=== PATIENT | female | born 1935 | race Caucasian/White ===

== ENCOUNTER 2020-04-15 11:25 | Observation (INO) | payer MEDICARE, OTHER ==
[2020-04-15 15:47] LABS: Appearance CLEAR (CLEAR); Bacteria RARE /HPF (NEGATIVE); Bilirubin NEGATIVE (NEGATIVE); Blood NEGATIVE Ery/ul (0-5); Glucose NEGATIVE (NEGATIVE); Ketones NEGATIVE (NEGATIVE); Leukocyte Esterase NEGATIVE (NEGATIVE); Nitrite NEGATIVE (NEGATIVE); Protein,Urine Dip NEGATIVE (Negative); Specific Gravity 1.004 (1.005-1.025); Urobilinogen NEGATIVE mg/dL (0-1); WBC 0-2 /HPF (0-5)
[2020-04-15 15:51] LABS: Absolute Neutrophil Ct (ANC) 5.61 (1.4-6.9); BASOPHIL % 0.3 % (0.0-0.4); Eosinophil % 2.9 % (0.00-5.0); Eosinophil (Absolute #) 0.22 (0-0.5); Hematocrit 43.9 % (35-47); Hemoglobin 14.3 gm/dl (12.0-16.0); Lymphocyte (Absolute #) 1.01 (1.0-4.6); Lymphocytes % 13.4 % (24.0-44.0); Mean Cell Volume 96.1 fl (78-100); Mean Corpuscular Hemoglobin 31.3 pg (26-32); Mean Corpuscular Hgb Concent. 32.6 g/dl (32-36); Mean Platelet Volume 9.6 fl (7.5-11.0); Monocyte (Absolute #) 0.68 (0.0-1.3); Neutrophil % 74.4 % (36.0-66.0); Platelet Count 216 K/mm3 (150-450); Red Blood Count 4.57 M/mm3 (4.1-5.4); Red Cell Distribution Width 13.7 % (11.5-14.0); White Blood Count 7.5 K/mm3 (4.0-10.5)
[2020-04-15 15:52] LABS: Basophil (Absolute #) 0.02 (0-0.4)
[2020-04-15 15:53] LABS: ALBUMIN 4.4 g/dL (3.5-5.0); ALKALINE PHOSPHATASE 181 U/L (38-126); BLOOD UREA NITROGEN 16 mg/dL (7-17); CHLORIDE 106 mmol/L (98-107); Calcium 9.8 mg/dL (8.4-10.2); Carbon Dioxide 29 mmol/L (22-30); Creatinine 1 0.72 mg/dL (0.52-1.04); Glucose 182 mg/dL (74-106); MAGNESIUM 2.2 mg/dL (1.6-2.3); Potassium 4.3 mmol/L (3.5-5.1); SGOT/AST 29 U/L (14-36); SGPT/ALT 17 U/L (0-35); SODIUM 141 mmol/L (137-145)
[2020-04-15 15:54] LABS: ANION GAP 10.3 MEQ/L (5-15); NT PRO BNP 128 pg/mL (0-1800); TROPONIN < 0.012 ng/mL (0.000-0.034)
--- NOTE | 2020-04-15 17:15 | XRAY ---
Indication: Intermittent chest pain 1 week. Comparison: None Portable chest demonstrates chronic interstitial lung markings without focal infiltrate, consolidation, or large effusion. Mild right hemidiaphragm elevation. Heart is not enlarged. Bony thorax intact with mild osteopenia and degenerative changes. Impression: Nonacute chest with chronic features.
[2020-04-15] MEDS ORDERED: TYLENOL 325 MG PO PRN (17:19)
[2020-04-15] MEDS ORDERED: Sodium Chloride 0.9% 10 ML FLUSH Syringe IV PRN (17:30)
[2020-04-15] MEDS: Protonix 40MG Tablet PO SCH (18:08)
--- NOTE | 2020-04-15 20:46 | PCM.HP ---
History of Present Illness - Chief Complaint Chief Complaint: ACS, CHEST PAIN History of Present Illness: is a 84 year old female pt admitted through ER with chest pain to rule out [place]. She was cleaning up breakfast at 8-9am this morning and started having achy pain in the mid chest radiating to the R shoulder, 06/09. Denies palpitations or nause, c/o diaphoresis. EKG without acute changes in ER. Troponin neg x1. Currently she has no pain. - Review of Systems Cardiac: Chest Pain Musculoskeletal: Arthralgias (shoulder pain) Skin: Other (diaphoresis) All Other Systems: Reviewed and Negative Medications & Allergies Home Medications: Home Medication List Amlodipine Besylate 10 mg PO DAILY 04/15/20 [History Confirmed 04/15/20] Glimepiride 1 mg PO DAILY 04/15/20 [History Confirmed 04/15/20] atenoloL [Atenolol] 50 mg PO DAILY 04/15/20 [History Confirmed 04/15/20] Allergies/Adverse Reactions: Allergies Allergy/AdvReac Type Severity Reaction Status Date / Time No Known Drug Allergies Allergy Unverified 04/15/20 17:26 - Past Medical History Past Medical History: Yes Neurological History: No Pertinent History ENT History: No Pertinent History Cardiac History: Hypertension Respiratory History: No Pertinent History Endocrine Medical History: Diabetes Type II Musculoskelatal History: No Pertinent History GI Medical History: No Pertinent History History: No Pertinent History Pyscho-Social History: No Pertinent History Reproductive Disorders: No Pertinent History - Female History Are you now?: No (HYST) - Past Surgical History Past Surgical History: Yes Neuro Surgical History: No Pertinent History Cardiac History: No Pertinent History Respiratory Surgery: No Pertinent History GI Surgical History: No Pertinent History Genitourinary Surgical Hx: No Pertinent History Musculskeletal Surgical Hx: No Pertinent History Female Surgical History: Hysterectomy Other Surgical History: R LEG MELANOMA REMOVED, 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, SALIVA GLAND REMOVED D/T CA - Social History Smoking Status: Never smoker Alcohol: None Drug Use: none - Physical Exam Vital Signs: Vital Signs - 24 hr Temp Pulse Resp BP Pulse Ox 04/15/20 17:34 97.8 F 67 16 133/60 97 General Appearance: no apparent distress, alert Neurologic Exam: oriented x 3, cooperative Eye Exam: eyes nml inspection Ears, Nose, Throat Exam: moist mucous membranes Neck Exam: normal inspection, non-tender, No lymphadenopathy Respiratory Exam: normal breath sounds, crackles/rales (faint bibasilar), No rhonchi, No wheezing Cardiovascular Exam: regular rate/rhythm, normal heart sounds, No murmur Gastrointestinal/Abdomen Exam: soft, normal bowel sounds, No tenderness, No distention, No mass, No guarding, No rebound Back Exam: normal inspection, No rash Extremity Exam: normal inspection, No pedal edema, No swelling Results - Labs Lab/Micro Results: Lab Results-Last 24 Hours 04/15/20 04/15/20 04/15/20 Range/Units 12:00 12:00 12:00 WBC 7.5 (4.0-10.5) K/mm3 RBC 4.57 (4.1-5.4) M/mm3 Hgb 14.3 (12.0-16.0) gm/dl Hct 43.9 (35-47) % MCV 96.1 (78-100) fl MCH 31.3 (26-32) pg MCHC 32.6 (32-36) g/dl RDW 13.7 (11.5-14.0) % Plt Count 216 (150-450) K/mm3 MPV 9.6 (7.5-11.0) fl Gran % 74.4 H (36.0-66.0) % Eos # (Auto) 0.22 (0-0.5) Absolute Lymphs (auto) 1.01 (1.0-4.6) Absolute Monos (auto) 0.68 (0.0-1.3) Lymphocytes % 13.4 L (24.0-44.0) % Monocytes % 9.0 (0.0-12.0) % Eosinophils % 2.9 (0.00-5.0) % Basophils % 0.3 (0.0-0.4) % Absolute Granulocytes 5.61 (1.4-6.9) Basophils # 0.02 (0-0.4) Sodium 141 (137-145) mmol/L Potassium 4.3 (3.5-5.1) mmol/L Chloride 106 (98-107) mmol/L Carbon Dioxide 29 (22-30) mmol/L Anion Gap 10.3 (5-15) MEQ/L BUN 16 (7-17) mg/dL Creatinine 0.72 (0.52-1.04) mg/dL Estimated GFR > 60.0 ML/MIN Glucose 182 H (74-106) mg/dL Calcium 9.8 (8.4-10.2) mg/dL Magnesium 2.2 (1.6-2.3) mg/dL Total Bilirubin 0.60 (0.2-1.3) mg/dL AST 29 (14-36) U/L ALT 17 (0-35) U/L Alkaline Phosphatase 181 H (38-126) U/L Troponin I < 0.012 (0.000-0.034) ng/mL NT-Pro-B Natriuret Pep 128 (0-1800) pg/mL Serum Total Protein 8.0 (6.3-8.2) g/dL Albumin 4.4 (3.5-5.0) g/dL Urine Color STRAW (YELLOW) Urine Appearance CLEAR (CLEAR) Urine pH 7.0 (5-6) Ur Specific [place] 1.004 (1.005-1.025) Urine Protein NEGATIVE (Negative) Urine Ketones NEGATIVE (NEGATIVE) Urine Blood NEGATIVE (0-5) Clay/ul Urine Nitrite NEGATIVE (NEGATIVE) Urine Bilirubin NEGATIVE (NEGATIVE) Urine Urobilinogen NEGATIVE (0-1) mg/dL Ur Leukocyte Esterase NEGATIVE (NEGATIVE) Urine WBC (Auto) 0-2 (0-5) /HPF Urine RBC (Auto) NONE (0-2) /HPF U Epithel Cells (Auto) NONE (FEW) /HPF Urine Bacteria (Auto) RARE (NEGATIVE) /HPF Urine Culture Reflexed NO (NO) Urine Glucose NEGATIVE (NEGATIVE) mg/dL 04/15/20 Range/Units 17:45 WBC (4.0-10.5) K/mm3 RBC (4.1-5.4) M/mm3 Hgb (12.0-16.0) gm/dl Hct (35-47) % MCV (78-100) fl MCH (26-32) pg MCHC (32-36) g/dl RDW (11.5-14.0) % Plt Count (150-450) K/mm3 MPV (7.5-11.0) fl Gran % (36.0-66.0) % Eos # (Auto) (0-0.5) Absolute Lymphs (auto) (1.0-4.6) Absolute Monos (auto) (0.0-1.3) Lymphocytes % (24.0-44.0) % Monocytes % (0.0-12.0) % Eosinophils % (0.00-5.0) % Basophils % (0.0-0.4) % Absolute Granulocytes (1.4-6.9) Basophils # (0-0.4) Sodium (137-145) mmol/L Potassium (3.5-5.1) mmol/L Chloride (98-107) mmol/L Carbon Dioxide (22-30) mmol/L Anion Gap (5-15) MEQ/L BUN (7-17) mg/dL Creatinine (0.52-1.04) mg/dL Estimated GFR ML/MIN Glucose (74-106) mg/dL Calcium (8.4-10.2) mg/dL Magnesium (1.6-2.3) mg/dL Total Bilirubin (0.2-1.3) mg/dL AST (14-36) U/L ALT (0-35) U/L Alkaline Phosphatase (38-126) U/L Troponin I < 0.012 (0.000-0.034) ng/mL NT-Pro-B Natriuret Pep (0-1800) pg/mL Serum Total Protein (6.3-8.2) g/dL Albumin (3.5-5.0) g/dL Urine Color (YELLOW) Urine Appearance (CLEAR) Urine pH (5-6) Ur Specific [place] (1.005-1.025) Urine Protein (Negative) Urine Ketones (NEGATIVE) Urine Blood (0-5) Clay/ul Urine Nitrite (NEGATIVE) Urine Bilirubin (NEGATIVE) Urine Urobilinogen (0-1) mg/dL Ur Leukocyte Esterase (NEGATIVE) Urine WBC (Auto) (0-5) /HPF Urine RBC (Auto) (0-2) /HPF U Epithel Cells (Auto) (FEW) /HPF Urine Bacteria (Auto) (NEGATIVE) /HPF Urine Culture Reflexed (NO) Urine Glucose (NEGATIVE) mg/dL - Radiology Impressions Radiology Exams & Impressions: Radiology Procedures Category Date Time Status CHEST 1 VIEW (PORTABLE) Routine Exams 04/15/20 16:15 Completed Assessment/Plan (1) Chest pain Current Visit: Yes Status: Acute Qualifiers: Chest pain type: unspecified Qualified Code(s): R07.9 - Chest pain, unspecified Assessment & Plan: here to r/o [place] Code(s): R07.9 - CHEST PAIN, UNSPECIFIED
[2020-04-15] MEDS ORDERED: Sodium Chloride 0.9% 10 ML FLUSH Syringe IV SCH (22:00)
[2020-04-16 03:52] LABS: Hematocrit 39.8 % (35-47); Mean Cell Volume 97.1 fl (78-100); Mean Corpuscular Hemoglobin 31.7 pg (26-32); Mean Corpuscular Hgb Concent. 32.7 g/dl (32-36); Mean Platelet Volume 9.9 fl (7.5-11.0); Platelet Count 210 K/mm3 (150-450); Red Cell Distribution Width 13.5 % (11.5-14.0); White Blood Count 7.3 K/mm3 (4.0-10.5)
[2020-04-16 03:57] LABS: ALBUMIN 3.4 g/dL (3.5-5.0); ALKALINE PHOSPHATASE 150 U/L (38-126); ANION GAP 8.8 MEQ/L (5-15); BLOOD UREA NITROGEN 15 mg/dL (7-17); CHLORIDE 107 mmol/L (98-107); Calcium 8.9 mg/dL (8.4-10.2); Carbon Dioxide 28 mmol/L (22-30); Creatinine 1 0.65 mg/dL (0.52-1.04); Glucose 135 mg/dL (74-106); Potassium 4.5 mmol/L (3.5-5.1); SGOT/AST 22 U/L (14-36); SGPT/ALT 14 U/L (0-35); SODIUM 140 mmol/L (137-145); Total Protein 6.4 g/dL (6.3-8.2)
[2020-04-16 07:35] VITALS: BP 124/57; PULSE 73; O2SAT 95
[2020-04-16] MEDS: Protonix 40MG Tablet PO SCH (09:27)
[2020-04-16] MEDS ORDERED: Ecotrin 325 MG PO SCH (10:00)
--- NOTE | 2020-04-16 11:34 | PCM.DS ---
Discharge Summary Date of Admission: 04/15/20 16:46 Admitting Physician: GOKUL WEST Primary Care Provider: NO FAMILY DOCTOR Allergies Allergies No Known Drug Allergies Allergy (Unverified 04/15/20 17:26) Hospital Summary - Hospital Course Hospital Course: Pt is 84 yo female with DM II admitted for chest pain to rule out [place]. Her troponins have been neg x 5. Her labs are completely normal this morning with the exception of a glucose of 135. She is feeling really good and would like to discharge to home. She will have an outpatient lexiscan cardiolyte. - Vitals & Intake/Output Vital Signs: Vital Signs Temperature 97.8 F 04/16/20 07:34 Pulse Rate 73 04/16/20 07:34 Respiratory Rate 16 04/16/20 07:34 Blood Pressure 124/57 04/16/20 07:34 O2 Sat by Pulse Oximetry 95 04/16/20 07:34 Intake & Output: Intake & Output 04/13/20 04/14/20 04/15/20 04/16/20 11:59 11:59 11:59 11:59 Intake Total 1380 Balance 1380 Weight 60.3 kg - Lab Result Diagrams: 04/16/20 02:40 04/16/20 02:40 Lab Results-Last 24 Hrs: Lab Results-Last 24 Hours 04/15/20 04/15/20 04/15/20 Range/Units 12:00 12:00 12:00 WBC 7.5 (4.0-10.5) K/mm3 RBC 4.57 (4.1-5.4) M/mm3 Hgb 14.3 (12.0-16.0) gm/dl Hct 43.9 (35-47) % MCV 96.1 (78-100) fl MCH 31.3 (26-32) pg MCHC 32.6 (32-36) g/dl RDW 13.7 (11.5-14.0) % Plt Count 216 (150-450) K/mm3 MPV 9.6 (7.5-11.0) fl Gran % 74.4 H (36.0-66.0) % Eos # (Auto) 0.22 (0-0.5) Absolute Lymphs (auto) 1.01 (1.0-4.6) Absolute Monos (auto) 0.68 (0.0-1.3) Lymphocytes % 13.4 L (24.0-44.0) % Monocytes % 9.0 (0.0-12.0) % Eosinophils % 2.9 (0.00-5.0) % Basophils % 0.3 (0.0-0.4) % Absolute Granulocytes 5.61 (1.4-6.9) Basophils # 0.02 (0-0.4) Sodium 141 (137-145) mmol/L Potassium 4.3 (3.5-5.1) mmol/L Chloride 106 (98-107) mmol/L Carbon Dioxide 29 (22-30) mmol/L Anion Gap 10.3 (5-15) MEQ/L BUN 16 (7-17) mg/dL Creatinine 0.72 (0.52-1.04) mg/dL Estimated GFR > 60.0 ML/MIN Glucose 182 H (74-106) mg/dL Calcium 9.8 (8.4-10.2) mg/dL Magnesium 2.2 (1.6-2.3) mg/dL Total Bilirubin 0.60 (0.2-1.3) mg/dL AST 29 (14-36) U/L ALT 17 (0-35) U/L Alkaline Phosphatase 181 H (38-126) U/L Troponin I < 0.012 (0.000-0.034) ng/mL NT-Pro-B Natriuret Pep 128 (0-1800) pg/mL Serum Total Protein 8.0 (6.3-8.2) g/dL Albumin 4.4 (3.5-5.0) g/dL Urine Color STRAW (YELLOW) Urine Appearance CLEAR (CLEAR) Urine pH 7.0 (5-6) Ur Specific [place] 1.004 (1.005-1.025) Urine Protein NEGATIVE (Negative) Urine Ketones NEGATIVE (NEGATIVE) Urine Blood NEGATIVE (0-5) Clay/ul Urine Nitrite NEGATIVE (NEGATIVE) Urine Bilirubin NEGATIVE (NEGATIVE) Urine Urobilinogen NEGATIVE (0-1) mg/dL Ur Leukocyte Esterase NEGATIVE (NEGATIVE) Urine WBC (Auto) 0-2 (0-5) /HPF Urine RBC (Auto) NONE (0-2) /HPF U Epithel Cells (Auto) NONE (FEW) /HPF Urine Bacteria (Auto) RARE (NEGATIVE) /HPF Urine Culture Reflexed NO (NO) Urine Glucose NEGATIVE (NEGATIVE) mg/dL 04/15/20 04/15/20 04/15/20 Range/Units 17:45 20:58 23:28 WBC (4.0-10.5) K/mm3 RBC (4.1-5.4) M/mm3 Hgb (12.0-16.0) gm/dl Hct (35-47) % MCV (78-100) fl MCH (26-32) pg MCHC (32-36) g/dl RDW (11.5-14.0) % Plt Count (150-450) K/mm3 MPV (7.5-11.0) fl Gran % (36.0-66.0) % Eos # (Auto) (0-0.5) Absolute Lymphs (auto) (1.0-4.6) Absolute Monos (auto) (0.0-1.3) Lymphocytes % (24.0-44.0) % Monocytes % (0.0-12.0) % Eosinophils % (0.00-5.0) % Basophils % (0.0-0.4) % Absolute Granulocytes (1.4-6.9) Basophils # (0-0.4) Sodium (137-145) mmol/L Potassium (3.5-5.1) mmol/L Chloride (98-107) mmol/L Carbon Dioxide (22-30) mmol/L Anion Gap (5-15) MEQ/L BUN (7-17) mg/dL Creatinine (0.52-1.04) mg/dL Estimated GFR ML/MIN Glucose (74-106) mg/dL Calcium (8.4-10.2) mg/dL Magnesium (1.6-2.3) mg/dL Total Bilirubin (0.2-1.3) mg/dL AST (14-36) U/L ALT (0-35) U/L Alkaline Phosphatase (38-126) U/L Troponin I < 0.012 < 0.012 < 0.012 (0.000-0.034) ng/mL NT-Pro-B Natriuret Pep (0-1800) pg/mL Serum Total Protein (6.3-8.2) g/dL Albumin (3.5-5.0) g/dL Urine Color (YELLOW) Urine Appearance (CLEAR) Urine pH (5-6) Ur Specific [place] (1.005-1.025) Urine Protein (Negative) Urine Ketones (NEGATIVE) Urine Blood (0-5) Clay/ul Urine Nitrite (NEGATIVE) Urine Bilirubin (NEGATIVE) Urine Urobilinogen (0-1) mg/dL Ur Leukocyte Esterase (NEGATIVE) Urine WBC (Auto) (0-5) /HPF Urine RBC (Auto) (0-2) /HPF U Epithel Cells (Auto) (FEW) /HPF Urine Bacteria (Auto) (NEGATIVE) /HPF Urine Culture Reflexed (NO) Urine Glucose (NEGATIVE) mg/dL 04/16/20 04/16/20 04/16/20 Range/Units 02:40 02:40 02:55 WBC 7.3 (4.0-10.5) K/mm3 RBC 4.10 (4.1-5.4) M/mm3 Hgb 13.0 (12.0-16.0) gm/dl Hct 39.8 (35-47) % MCV 97.1 (78-100) fl MCH 31.7 (26-32) pg MCHC 32.7 (32-36) g/dl RDW 13.5 (11.5-14.0) % Plt Count 210 (150-450) K/mm3 MPV 9.9 (7.5-11.0) fl Gran % (36.0-66.0) % Eos # (Auto) (0-0.5) Absolute Lymphs (auto) (1.0-4.6) Absolute Monos (auto) (0.0-1.3) Lymphocytes % (24.0-44.0) % Monocytes % (0.0-12.0) % Eosinophils % (0.00-5.0) % Basophils % (0.0-0.4) % Absolute Granulocytes (1.4-6.9) Basophils # (0-0.4) Sodium 140 (137-145) mmol/L Potassium 4.5 (3.5-5.1) mmol/L Chloride 107 (98-107) mmol/L Carbon Dioxide 28 (22-30) mmol/L Anion Gap 8.8 (5-15) MEQ/L BUN 15 (7-17) mg/dL Creatinine 0.65 (0.52-1.04) mg/dL Estimated GFR > 60.0 ML/MIN Glucose 135 H (74-106) mg/dL Calcium 8.9 (8.4-10.2) mg/dL Magnesium (1.6-2.3) mg/dL Total Bilirubin 0.70 (0.2-1.3) mg/dL AST 22 (14-36) U/L ALT 14 (0-35) U/L Alkaline Phosphatase 150 H (38-126) U/L Troponin I < 0.012 (0.000-0.034) ng/mL NT-Pro-B Natriuret Pep (0-1800) pg/mL Serum Total Protein 6.4 (6.3-8.2) g/dL Albumin 3.4 L (3.5-5.0) g/dL Urine Color (YELLOW) Urine Appearance (CLEAR) Urine pH (5-6) Ur Specific [place] (1.005-1.025) Urine Protein (Negative) Urine Ketones (NEGATIVE) Urine Blood (0-5) Clay/ul Urine Nitrite (NEGATIVE) Urine Bilirubin (NEGATIVE) Urine Urobilinogen (0-1) mg/dL Ur Leukocyte Esterase (NEGATIVE) Urine WBC (Auto) (0-5) /HPF Urine RBC (Auto) (0-2) /HPF U Epithel Cells (Auto) (FEW) /HPF Urine Bacteria (Auto) (NEGATIVE) /HPF Urine Culture Reflexed (NO) Urine Glucose (NEGATIVE) mg/dL - Radiology Exams Ordered Rad Exams-Entire Visit: Radiology Procedures Category Date Time Status CHEST 1 VIEW (PORTABLE) Routine Exams 04/15/20 16:15 Completed - Procedures and Test Procedures and Tests throughout Hospitalization: Therapy Orders & Screens 04/16/20 07:46 STRESS TEST [Schedule Outpt Stress Test] ROUTINE Comment: Diagnosis: ACS, CHEST PAIN Schedule Outpt Stress Test: Cardiolyte Stress Test Cardiolite Stress Test: Cardiolite Lexiscan Discharge Exam General Appearance: no apparent distress, alert Neurologic Exam: oriented x 3, cooperative Eye Exam: eyes nml inspection Ears, Nose, Throat Exam: moist mucous membranes Neck Exam: normal inspection Respiratory Exam: normal breath sounds, crackles/rales (bibasilar), No diminished breath sounds, No rhonchi, No wheezing Cardiovascular Exam: regular rate/rhythm, normal heart sounds, No murmur Gastrointestinal/Abdomen Exam: soft, normal bowel sounds, No tenderness, No distention, No mass, No guarding, No rebound Back Exam: normal inspection, No rash Extremity Exam: normal inspection, No swelling, No tenderness Skin Exam: normal color, warm, dry, No rash Final Diagnosis/Problem List - Final Discharge Diagnosis/Problem (1) Chest pain Current Visit: Yes Status: Acute Assessment & Plan: [place] ruled out. Stress test scheduled. Code(s): R07.9 - CHEST PAIN, UNSPECIFIED (2) Diabetes mellitus Current Visit: Yes Status: Chronic Assessment & Plan: Type II, no insulin usage. No cx. Code(s): E11.9 - TYPE 2 DIABETES MELLITUS WITHOUT COMPLICATIONS - Discharge Disposition: Home, Self-Care Condition: Good Prescriptions: Continue Amlodipine Besylate 10 mg PO DAILY atenoloL [Atenolol] 50 mg PO DAILY Glimepiride 1 mg PO DAILY Follow up with: TIFFANY SAENZ [ACTIVE STAFF] - 05/06/20 11:00 am
== END 2020-04-16 11:50 | disposition home or self-care (01) ==
LOC: ED 11:25 → MED SURG 16:46
PROVIDERS: ADMIT Family Medicine; ATTEND Family Medicine
DX: R07.9 Chest pain, unspecified (principal); I24.9 Acute ischemic heart disease, unspecified; E11.9 Type 2 diabetes mellitus without complications; M25.511 Pain in right shoulder; R42 Dizziness and giddiness; Z79.899 Other long term (current) drug therapy
CPT/HCPCS: 36415; 71045; 80053; 81001; 83735; 83880; 84484; 85025; 85027; 93268; G0378; A9270-GY

== ENCOUNTER 2020-08-27 06:14 | Emergency (ER) | payer MEDICARE, OTHER ==
--- NOTE | 2020-08-27 06:42 | ERPHSYRPT ---
<RADHA IRENE - Last Filed: 08/27/20 07:11> - History of Present Illness Historian: patient Exam Limitations: other (Poor historian) Patient Subjective Stated Complaint: Pt c/o chest pain around 0330 which lasted approx 2 hours or so. Pt called 911 Triage Nursing Assessment: pt c/o chest pain to rt upper chest, pain to her rt shoulder and rt shoulder blade posteriorly, diaphoretic. This occured around 0330 lasting at least 2 hours. Pt was awake and drinking cappuccino when the episode occured. Pt's called 911. Pt received Asa 324 mg po via ambulance and was placed on 2L n/c. Pt's chest pain at that time has resolved but was brought to ER for evaluation. Pt c/o achiness to rt shoulder and down arm, rates pain a 5 at this time. Pt denies any nausea, vomiting, palpitations. Lungs clear, crackles to bases, heart tones regular. Physician History: 84 yo wf w R substernal CP x 3Hrs w rad to RUE. Pain is rated 45/10 at present but was up to a 9. Pt states that O2 made better. She states that she was diap horetic/dyspneic but denied N/V. She had similar pain w admit 4 months ago. She denies h/o CAD/UT/hyperlipidemia/tobacco abuse, but does have a h/o HTN/DM. Pt denies cough/fever. Timing/Duration: other (3hrs) Activities at Onset: sleep Quality: aching Location: substernal Chest Pain Radiation: arm Severity of Pain-Max: severe Severity of Pain-Current: mild Modifying Factors: Improves With: oxygen. Worsens With: antacids, breathing, coughing, defecating, eating, exertion, lying down, morphine, movement, nitroglycerin, palpation, rest, aspirin, sitting up, change in position Associated Symptoms: shortness of breath, diaphoresis, No nausea, No vomiting, No palpitations, No heartburn, No chills, No fever, No fatigue, No weakness, No swelling/lump in chest, No syncope, No rash, No headache, No dizziness, No edema, No back pain Prior Chest Pain/Cardiac Workup: recently seen/treated Nitro Today/Relief: no nitro taken today Aspirin Treatment Today: provided by EMS Allergies/Adverse Reactions: No Known Drug Allergies Allergy (Verified 10/28/20 06:39) Home Medications: Amlodipine Besylate 10 mg PO DAILY 04/15/20 [History] Glimepiride 1 mg PO DAILY 04/15/20 [History] atenoloL [Atenolol] 50 mg PO DAILY 04/15/20 [History] Hx Tetanus, Diphtheria Vaccination/Date Given: No Hx Influenza Vaccination/Date Given: No Hx Pneumococcal Vaccination/Date Given: No Immunizations Up to Date: No Travel Risk - International Travel Have you traveled outside of the country in past 3 weeks: No - Coronavirus Screening Are you exhibiting any of the following symptoms?: No Close contact with a COVID-19 positive Pt in past 14-21 Days: No - Review of Systems Constitutional: No Symptoms Eyes: No Symptoms Ears, Nose, & Throat: No Symptoms Respiratory: Dyspnea Cardiac: Chest Pain Abdominal/Gastrointestinal: No Symptoms Genitourinary Symptoms: No Symptoms Musculoskeletal: No Symptoms Skin: No Symptoms Neurological: No Symptoms Psychological: No Symptoms Endocrine: No Symptoms Hematologic/Lymphatic: No Symptoms Immunological/Allergic: No Symptoms - Past Medical History Pertinent Past Medical History: Yes Neurological History: No Pertinent History ENT History: No Pertinent History Cardiac History: Angina, Hypertension Respiratory History: Other Endocrine Medical History: Diabetes Type II Musculoskeletal History: No Pertinent History GI Medical History: No Pertinent History History: No Pertinent History Psycho-Social History: Anxiety Female Reproductive Disorders: No Pertinent History Other Medical History: spots to lungs, melanoma - Past Surgical History Past Surgical History: Yes Neuro Surgical History: No Pertinent History Cardiac: No Pertinent History Respiratory: No Pertinent History Gastrointestinal: No Pertinent History Genitourinary: No Pertinent History Musculoskeletal: No Pertinent History Female Surgical History: Hysterectomy Other Surgical History: R LEG MELANOMA REMOVED, 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, SALIVA GLAND REMOVED D/T CA - Social History Smoking Status: Former smoker Exposure to second hand smoke: No Drug Use: none Patient Lives Alone: No - Physical Exam General Appearance: no apparent distress, anxiety Eye Exam: PERRL/EOMI, eyes nml inspection Ears, Nose, Throat Exam: normal ENT inspection, TMs normal, pharynx normal, moist mucous membranes Neck Exam: normal inspection, non-tender, supple, full range of motion, No meningismus, No mass Respiratory Exam: crackles/rales (Rales bases B), No respiratory distress Cardiovascular Exam: regular rate/rhythm, normal heart sounds, normal peripheral pulses, No murmur Gastrointestinal/Abdomen Exam: soft, normal bowel sounds, No tenderness Pelvic Exam: not done Back Exam: normal inspection, normal range of motion, No CVA tenderness Extremity Exam: normal inspection, normal range of motion Neurologic Exam: alert, oriented x 3, cooperative, chief deputy sheriff II-XII nml as tested, normal mood/affect, sensation nml, No motor deficits, No sensory deficit Skin Exam: normal color, warm, dry Lymphatic Exam: No adenopathy SpO2 Interpretation: normal SpO2: 97 O2 Delivery: Room Air - Course EKG Interpreted by Me: RATE (NSR/Rate 73/Normal QT-QTc/No acute ST-T wave changes) - Radiology Exams Chest X-ray Interpretation: Interpreted by me (Chronic interstitual changes/Nothing acute) - Progress Progress Note: 08/27/20 07:22 Care turned over to Dr. Plunkett at 7:30AM - Departure Clinical Impression: Non-cardiac chest pain, Cholelithiasis Condition: Stable Referrals: TIFFANY SAENZ [Primary Care Provider] - Additional Instructions: Drink plenty of fluids. Avoid fatty greasy spicy foods. Follow-up with your primary care physician for further management of your cholelithiasis/gallbladder issues. <LISS PLUNKETT - Last Filed: 08/27/20 10:31> - Nursing Vital Signs Nursing Vital Signs: Initial Vital Signs Temperature 97.6 F 08/27/20 06:14 Pulse Rate 73 08/27/20 06:14 Respiratory Rate 20 08/27/20 06:14 Blood Pressure 153/72 08/27/20 06:14 O2 Sat by Pulse Oximetry 97 08/27/20 06:14 Pain Scale Pain Intensity 2 Ordered Tests: Active Orders 24 hr Category Date Time Status EKG-ER Only STAT Care 08/27/20 06:37 Active CHEST 1 VIEW (PORTABLE) Stat Exams 08/27/20 06:41 Completed CBC W DIFF Stat Lab 08/27/20 06:40 Completed CMP Stat Lab 08/27/20 06:40 Completed PROTIME WITH INR Stat Lab 08/27/20 06:40 Completed PTT Stat Lab 08/27/20 06:40 Completed TROPONIN Q3H Lab 08/27/20 06:40 Completed TROPONIN Q3H Lab 08/27/20 09:45 Completed TROPONIN Q3H Lab 08/27/20 12:30 Ordered TROPONIN Q3H Lab 08/27/20 15:30 Ordered TROPONIN Q3H Lab 08/27/20 18:30 Ordered Lab/Rad Data: Laboratory Result Diagrams 08/27/20 06:40 08/27/20 06:40 Laboratory Results 08/27/20 08/27/20 08/27/20 Range/Units 09:45 06:40 06:40 WBC (4.0-10.5) K/mm3 RBC (4.1-5.4) M/mm3 Hgb (12.0-16.0) gm/dl Hct (35-47) % MCV (78-100) fl MCH (26-32) pg MCHC (32-36) g/dl RDW (11.5-14.0) % Plt Count (150-450) K/mm3 MPV (7.5-11.0) fl Gran % (36.0-66.0) % Eos # (Auto) (0-0.5) Absolute Lymphs (auto) (1.0-4.6) Absolute Monos (auto) (0.0-1.3) Lymphocytes % (24.0-44.0) % Monocytes % (0.0-12.0) % Eosinophils % (0.00-5.0) % Basophils % (0.0-0.4) % Absolute Granulocytes (1.4-6.9) Basophils # (0-0.4) PT 11.1 (9.95-12.35) SECONDS INR 0.98 (0.8-3.0) APTT 26.3 (25.3-37.0) SECONDS Sodium (137-145) mmol/L Potassium (3.5-5.1) mmol/L Chloride (98-107) mmol/L Carbon Dioxide (22-30) mmol/L Anion Gap (5-15) MEQ/L BUN (7-17) mg/dL Creatinine (0.52-1.04) mg/dL Estimated GFR ML/MIN Glucose (74-106) mg/dL Calcium (8.4-10.2) mg/dL Total Bilirubin (0.2-1.3) mg/dL AST (14-36) U/L ALT (0-35) U/L Alkaline Phosphatase (38-126) U/L Troponin I < 0.012 < 0.012 (0.000-0.034) ng/mL Serum Total Protein (6.3-8.2) g/dL Albumin (3.5-5.0) g/dL 08/27/20 08/27/20 Range/Units 06:40 06:40 WBC 8.8 (4.0-10.5) K/mm3 RBC 4.33 (4.1-5.4) M/mm3 Hgb 13.6 (12.0-16.0) gm/dl Hct 42.7 (35-47) % MCV 98.6 (78-100) fl MCH 31.4 (26-32) pg MCHC 31.9 L (32-36) g/dl RDW 13.7 (11.5-14.0) % Plt Count 165 (150-450) K/mm3 MPV 9.6 (7.5-11.0) fl Gran % 80.5 H (36.0-66.0) % Eos # (Auto) 0.20 (0-0.5) Absolute Lymphs (auto) 0.70 L (1.0-4.6) Absolute Monos (auto) 0.80 (0.0-1.3) Lymphocytes % 8.0 L (24.0-44.0) % Monocytes % 9.1 (0.0-12.0) % Eosinophils % 2.3 (0.00-5.0) % Basophils % 0.1 (0.0-0.4) % Absolute Granulocytes 7.09 H (1.4-6.9) Basophils # 0.01 (0-0.4) PT (9.95-12.35) SECONDS INR (0.8-3.0) APTT (25.3-37.0) SECONDS Sodium 141 (137-145) mmol/L Potassium 5.4 H (3.5-5.1) mmol/L Chloride 107 (98-107) mmol/L Carbon Dioxide 29 (22-30) mmol/L Anion Gap 11.0 (5-15) MEQ/L BUN 22 H (7-17) mg/dL Creatinine 0.71 (0.52-1.04) mg/dL Estimated GFR > 60.0 ML/MIN Glucose 205 H (74-106) mg/dL Calcium 9.3 (8.4-10.2) mg/dL Total Bilirubin 0.60 (0.2-1.3) mg/dL AST 37 H (14-36) U/L ALT 21 (0-35) U/L Alkaline Phosphatase 170 H (38-126) U/L Troponin I (0.000-0.034) ng/mL Serum Total Protein 7.4 (6.3-8.2) g/dL Albumin 4.1 (3.5-5.0) g/dL - Progress Progress: improved, re-examined Air Movement: good Progress Note: 08/27/20 08:34 Patient is reexamined and reevaluated. Patient states she has no chest pain and is feeling good at this time. Gallbladder ultrasound performed approximately 20 days ago shows cholelithiasis. 08/27/20 10:28 Patient reexamined. No chest pain present. Blood Culture(s) Obtained: No Antibiotics given: No Counseled pt/family regarding: lab results, diagnosis, need for follow-up, rad results - Departure Departure Disposition: Home Critical Care Time: No
[2020-08-27 06:55] LABS: Absolute Neutrophil Ct (ANC) 7.09 (1.4-6.9); BASOPHIL % 0.1 % (0.0-0.4); Basophil (Absolute #) 0.01 (0-0.4); Eosinophil % 2.3 % (0.00-5.0); Hematocrit 42.7 % (35-47); Hemoglobin 13.6 gm/dl (12.0-16.0); Mean Cell Volume 98.6 fl (78-100); Mean Corpuscular Hemoglobin 31.4 pg (26-32); Mean Corpuscular Hgb Concent. 31.9 g/dl (32-36); Mean Platelet Volume 9.6 fl (7.5-11.0); Monocytes % 9.1 % (0.0-12.0); Neutrophil % 80.5 % (36.0-66.0); Platelet Count 165 K/mm3 (150-450); Red Blood Count 4.33 M/mm3 (4.1-5.4); Red Cell Distribution Width 13.7 % (11.5-14.0); White Blood Count 8.8 K/mm3 (4.0-10.5)
[2020-08-27 07:01] LABS: INR 0.98 (0.8-3.0); PROTIME 11.1 SECONDS (9.95-12.35)
[2020-08-27 07:03] LABS: PTT 26.3 SECONDS (25.3-37.0)
[2020-08-27 07:05] LABS: ALBUMIN 4.1 g/dL (3.5-5.0); ALKALINE PHOSPHATASE 170 U/L (38-126); BLOOD UREA NITROGEN 22 mg/dL (7-17); CHLORIDE 107 mmol/L (98-107); Calcium 9.3 mg/dL (8.4-10.2); Carbon Dioxide 29 mmol/L (22-30); Creatinine 1 0.71 mg/dL (0.52-1.04); EST GLOMERULAR FILTRATION RATE > 60.0 ML/MIN; Glucose 205 mg/dL (74-106); Potassium 5.4 mmol/L (3.5-5.1); SGOT/AST 37 U/L (14-36); SGPT/ALT 21 U/L (0-35); SODIUM 141 mmol/L (137-145); Total Protein 7.4 g/dL (6.3-8.2)
--- NOTE | 2020-08-27 09:24 | XRAY ---
Indication: Right shoulder/chest pain. Comparison: April 15, 2020. Portable chest unchanged again demonstrating chronic lung markings, right lung suture material, and right hemidiaphragm elevation. Heart is not enlarged. Bony thorax intact again with mild osteopenia and degenerative changes. No new/acute findings.
[2020-08-27 10:05] VITALS: BP 148/72; PULSE 69; O2SAT 98
== END 2020-08-27 10:39 | disposition home or self-care (01) ==
LOC: ED 06:14
DX: R07.89 Other chest pain (principal); K80.20 Calculus of gallbladder without cholecystitis without obstruction
CPT/HCPCS: 36000; 36415; 71045; 80053; 84484; 85025; 85610; 85730; 93005; 99284

== ENCOUNTER 2021-07-10 15:00 | Inpatient (IN) | payer MEDICARE, OTHER ==
[2021-07-10 16:30] LABS: Hematocrit 34.9 % (35-47); Hemoglobin 10.8 gm/dl (12.0-16.0); Mean Cell Volume 96.7 fl (78-100); Mean Corpuscular Hemoglobin 29.9 pg (26-32); Mean Corpuscular Hgb Concent. 30.9 g/dl (32-36); Mean Platelet Volume 9.6 fl (7.5-11.0); Platelet Count 342 K/mm3 (150-450); Red Blood Count 3.61 M/mm3 (4.1-5.4); Red Cell Distribution Width 13.7 % (11.5-14.0); White Blood Count 8.9 K/mm3 (4.0-10.5)
--- NOTE | 2021-07-10 16:45 | XRAY ---
Indication: Short of breath. Pneumonia. CHF. Comparison: August 27, 2020. Portable chest unchanged again hyperinflated with chronic lung markings, right lung suture material, and right hemidiaphragm elevation. No focal infiltrate, consolidation, or large effusion. Heart not enlarged for AP portable technique. Bony thorax intact again with mild osteopenia and degenerative changes. Impression: Continued nonacute chest with chronic features.
[2021-07-10 16:52] LABS: ALBUMIN 3.4 g/dL (3.5-5.0); ALKALINE PHOSPHATASE 176 U/L (38-126); ANION GAP 14.2 MEQ/L (5-15); BLOOD UREA NITROGEN 18 mg/dL (7-17); CHLORIDE 102 mmol/L (98-107); Calcium 9.2 mg/dL (8.4-10.2); Carbon Dioxide 25 mmol/L (22-30); Creatinine 1 0.65 mg/dL (0.52-1.04); EST GLOMERULAR FILTRATION RATE > 60.0 ML/MIN; Glucose 143 mg/dL (74-106); NT PRO BNP 654 pg/mL (0-1800); Potassium 4.2 mmol/L (3.5-5.1); SGOT/AST 31 U/L (14-36); SGPT/ALT 43 U/L (0-35); SODIUM 138 mmol/L (137-145); TROPONIN < 0.012 ng/mL (0.000-0.034)
[2021-07-10 17:00] LABS: A-aADO2 38; ABG HEMOGLOBIN 11.3; ABG POTASSIUM 4.1 (3.5-5.1); ARTERIAL BLD GAS O2 SATURATION 95.1 % (95-100); ARTERIAL BLOOD GAS BASE EXCESS 3.5 (-2.0-2.0); ARTERIAL BLOOD GAS FIO2 21 %; ARTERIAL BLOOD GAS PCO2 35 mmHg (35-45); ARTERIAL BLOOD GAS PO2 68 mmHg (75-100); ARTERIAL BLOOD GAS pH 7.49 (7.35-7.45); CARBOXYHEMOGLOBIN 1.2 % THgb (0.0-6.9); HCO3- 26.7 (22-28); HGB O2 SAT 93.2 g/dF (94-100); Methhemoglobin 0.8 % (1.4-1.5)
[2021-07-10 17:01] LABS: ABG SITE LEFT BRACHIAL
[2021-07-10] MEDS ORDERED: Lasix 40 MG/4 ML IV ONE (17:15)
[2021-07-10 18:12] LABS: Appearance CLEAR (CLEAR); Bacteria RARE /HPF (NEGATIVE); Bilirubin NEGATIVE (NEGATIVE); Blood NEGATIVE Ery/ul (0-5); Glucose NEGATIVE (NEGATIVE); Hyaline Casts 0-2 /LPF (0-2); Ketones NEGATIVE (NEGATIVE); Leukocyte Esterase SMALL (NEGATIVE); Mucus SLIGHT /HPF (NEGATIVE); Nitrite NEGATIVE (NEGATIVE); Protein,Urine Dip NEGATIVE (Negative); RBC 0-2 /HPF (0-2); Specific Gravity 1.009 (1.005-1.025); Urobilinogen NEGATIVE mg/dL (0-1)
[2021-07-10] MEDS ORDERED: Ativan 2 MG/1 ML VIAL IV PRN (19:41)
[2021-07-10] MEDS ORDERED: MORPHINE SULFATE 2 MG INJ IV PRN (19:42)
[2021-07-10] MEDS ORDERED: ROCEPHIN 1 Gm-D5w 50 ml Bag** 1 G/50 ML IVPB IV ONE (19:47)
[2021-07-10] MEDS ORDERED: Zithromax 500 MG/ 250 ML NaCl Premix 500 MG/250 ML IVPB IV ONE (19:48)
[2021-07-10] MEDS: TYLENOL 325 MG PO PRN (20:38)
--- NOTE | 2021-07-11 07:33 | XRAY ---
Indication: Short of breath for months. Elevated d-dimer. Status post ERCP 1.5 weeks. Multiple contiguous axial images obtained through the chest using 80 cc Isovue 370 contrast and PE protocol. Comparison: February 09, 2021. There is good opacification of the pulmonary arteries to include the lobar and segmental branches. No pulmonary embolus. Heart is not enlarged. Aorta remains mildly arteriosclerotic without dissection. 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 No pathologic mediastinal/hilar lymphadenopathy. Lungs again demonstrates diffuse scattered fibrosis/scarring, right lung suture material, and 4 mm left lower lobe noncalcified nodule. No suspicious pulmonary mass/nodule, infiltrate, effusion, or pneumothorax. Bony thorax intact again with mild osteopenia. Limited upper abdomen demonstrates new biliary stent and pneumobilia. Right lobe of the liver demonstrates new 7 cm rounded fluid collection with fluid leveling possibly infected. Impression: 1. Negative for pulmonary embolus. No new/acute cardiopulmonary abnormalities. 2. Stable scattered pulmonary fibrosis/scarring, right lung postsurgical changes, left lower lobe noncalcified micronodule, and scattered arteriosclerotic disease with distal thoracic aortic dilatation. 3. New pneumobilia and biliary stent. 4. New large right lobe hepatic round fluid collection with fluid leveling possibly infected. Comment: Preliminary interpretation made by C. No critical discrepancy.
[2021-07-11 07:40] LABS: Hematocrit 32.9 % (35-47); Hemoglobin 9.9 gm/dl (12.0-16.0); Mean Cell Volume 98.2 fl (78-100); Mean Corpuscular Hemoglobin 29.6 pg (26-32); Mean Corpuscular Hgb Concent. 30.1 g/dl (32-36); Mean Platelet Volume 10.1 fl (7.5-11.0); Platelet Count 333 K/mm3 (150-450); Red Blood Count 3.35 M/mm3 (4.1-5.4); Red Cell Distribution Width 13.7 % (11.5-14.0); White Blood Count 7.6 K/mm3 (4.0-10.5)
[2021-07-11 07:50] LABS: ANION GAP 9.3 MEQ/L (5-15); BLOOD UREA NITROGEN 16 mg/dL (7-17); CHLORIDE 104 mmol/L (98-107); Calcium 8.7 mg/dL (8.4-10.2); Carbon Dioxide 30 mmol/L (22-30); Creatinine 1 0.59 mg/dL (0.52-1.04); EST GLOMERULAR FILTRATION RATE > 60.0 ML/MIN; Glucose 146 mg/dL (74-106); Potassium 4.4 mmol/L (3.5-5.1); SODIUM 139 mmol/L (137-145)
[2021-07-11] MEDS ORDERED: Hydromorphone 1 mg/ml Injection IV PRN (11:11)
[2021-07-11] MEDS: Sodium Chloride 0.9% 1000 ML 1,000 ML IV SCH (12:34)
[2021-07-11] MEDS: Vitamin B-12 500 MCG PO SCH (12:43)
[2021-07-11] MEDS: NORVASC 5 MG PO SCH (12:44)
[2021-07-11] MEDS: TENORMIN 50 MG PO SCH (12:44)
[2021-07-11] MEDS: Calcium 500MG W/Vit D Tablet PO SCH (12:44)
[2021-07-11] MEDS: Vitamin C 500 MG PO SCH (12:44)
[2021-07-11] MEDS: Amaryl 2 MG PO SCH (12:44)
[2021-07-11] MEDS: Zosyn 3.375 GM Vial 3.375 GM in Sodium Chloride 100ML MINI-BAG PLUS 100 ML IV SCH ×2 (12:48→17:30)
[2021-07-11] MEDS: TYLENOL 325 MG PO PRN ×2 (12:57→22:01)
[2021-07-11] MEDS ORDERED: METHYLPREDNISOLONE IV SCH ×2 (14:00)
[2021-07-11] MEDS ORDERED: [UNRECOGNIZED DRUG - OTHER] IV SCH ×2 (14:00)
[2021-07-11] MEDS: solu-MEDROL 60 MG, Sterile H2O 10 ml 2 ML IV SCH ×4 (14:43→22:04)
[2021-07-11] MEDS: DUONEB 0.5-3 MG/3 ml Neb IH SCH ×2 (15:52→19:22)
[2021-07-11] MEDS ORDERED: Zithromax 500 MG/ 250 ML NaCl Premix 500 MG/250 ML IVPB IV SCH (17:00)
[2021-07-11] MEDS ORDERED: ROCEPHIN 1 Gm-D5w 50 ml Bag** 1 G/50 ML IVPB IV SCH (17:00)
[2021-07-11] MEDS ORDERED: DUONEB 0.5-3 MG/3 ml Neb IH PRN (19:26)
--- NOTE | 2021-07-11 20:23 | PCM.HP ---
History of Present Illness - Chief Complaint Chief Complaint: Shortness of Breath, right shoulder pain, pulmonary fibrosis, hepatic absce Date: 07/11/21 History of Present Illness: is a 85 year old female. Pt. presented to office yesterday with complaints of not feeling well since ERCP was performed and over 50 common bile duct stones were removed. Pt. also notes right shoulder pain has bee worsening although the exam was very non-conclusive. Pt. note increased sob also to the point she can hardly walk across the room. Pt looked ill and was admitted for further evaluation and treatment, although initially she presented to be possible chf/pneumonia, these were ruled out in the workup only showing pulmonary fibrosis and elevated d-dimer with ct showing hepatic abscess. - Review of Systems Constitutional: No Fever, No Chills Eyes: No Symptoms Ears, Nose, & Throat: No Symptoms Respiratory: Cough, Short Of Breath Cardiac: No Chest Pain, No Edema, No Syncope Abdominal/Gastrointestinal: No Abdominal Pain, No Nausea, No Vomiting, No Diarrhea Genitourinary Symptoms: No Dysuria Musculoskeletal: Joint Pain, No Back Pain, No Neck Pain Skin: No Rash Neurological: No Dizziness, No Focal Weakness, No Sensory Changes Psychological: No Symptoms Endocrine: No Symptoms Hematologic/Lymphatic: No Symptoms Immunological/Allergic: No Symptoms Medications & Allergies Home Medications: Home Medication List Amlodipine Besylate 10 mg PO DAILY 04/15/20 [History Confirmed 07/10/21] Glimepiride 1 mg PO DAILY 04/15/20 [History Confirmed 07/10/21] atenoloL [Atenolol] 50 mg PO DAILY 04/15/20 [History Confirmed 07/10/21] Ascorbic Acid 500 mg [Vitamin C 500 MG] 500 mg PO DAILY 07/10/21 [History Confirmed 07/10/21] Calcium Carbonate/Vitamin D3 [Calcium 600 + Vit D Caplet] 1 tab PO DAILY 07/10/21 [History Confirmed 07/10/21] Cyanocobalamin (Vitamin B-12) [Vitamin B-12] 1,000 mcg PO DAILY 07/10/21 [History Confirmed 07/10/21] Allergies/Adverse Reactions: Allergies Allergy/AdvReac Type Severity Reaction Status Date / Time No Known Drug Allergies Allergy Verified 08/27/20 06:39 - Past Medical History Past Medical History: Yes Neurological History: No Pertinent History ENT History: No Pertinent History Cardiac History: Hypertension Respiratory History: Other (pulmonary fibrosis) Endocrine Medical History: Diabetes Type II Musculoskelatal History: No Pertinent History GI Medical History: No Pertinent History History: No Pertinent History Pyscho-Social History: Anxiety Reproductive Disorders: No Pertinent History Comment: spots to lungs for last 10 years - has been looked into 2x and patient states it was "nothing wrong" - Female History Are you now?: No - Past Surgical History Past Surgical History: Yes Neuro Surgical History: No Pertinent History Cardiac History: No Pertinent History Respiratory Surgery: No Pertinent History GI Surgical History: Cholecystectomy Genitourinary Surgical Hx: No Pertinent History Musculskeletal Surgical Hx: No Pertinent History Female Surgical History: Hysterectomy Other Surgical History: R LEG MELANOMA REMOVED, 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, SALIVA GLAND REMOVED D/T CA- bile duct stones removed - Social History Smoking Status: Former smoker Exposure to second hand smoke: No Alcohol: None Drug Use: none - Physical Exam Vital Signs: Vital Signs - 24 hr Temp Pulse Resp BP Pulse Ox 07/11/21 19:22 84 16 96 07/11/21 16:11 71 16 96 07/11/21 16:09 96 07/11/21 16:00 95.2 F 76 14 121/57 96 07/11/21 12:00 98.6 F 85 20 115/57 96 07/11/21 08:37 96 07/11/21 08:00 98.3 F 81 16 110/56 94 L 07/11/21 04:00 98.3 F 76 22 107/52 98 07/11/21 00:00 99.2 F 80 20 112/58 95 General Appearance: no apparent distress Neurologic Exam: alert, oriented x 3, cooperative, normal mood/affect, nml ce rebellar function, nml station & gait, sensation nml, No motor deficits Eye Exam: PERRL/EOMI, eyes nml inspection Ears, Nose, Throat Exam: normal ENT inspection, TMs normal, pharynx normal, moist mucous membranes Neck Exam: normal inspection, non-tender, supple, full range of motion Respiratory Exam: crackles/rales, rhonchi, No respiratory distress Cardiovascular Exam: regular rate/rhythm, normal heart sounds, normal peripheral pulses Gastrointestinal/Abdomen Exam: soft, normal bowel sounds, No tenderness, No mass Back Exam: normal inspection, normal range of motion, No CVA tenderness, No vertebral tenderness Extremity Exam: normal inspection, normal range of motion, pelvis stable Skin Exam: normal color, warm, dry, No rash Lymphatic Exam: No adenopathy Results - Labs Lab/Micro Results: Lab Results-Last 24 Hours 07/10/21 07/11/21 07/11/21 Range/Units 20:48 06:30 06:30 WBC 7.6 (4.0-10.5) K/mm3 RBC 3.35 L (4.1-5.4) M/mm3 Hgb 9.9 L (12.0-16.0) gm/dl Hct 32.9 L (35-47) % MCV 98.2 (78-100) fl MCH 29.6 (26-32) pg MCHC 30.1 L (32-36) g/dl RDW 13.7 (11.5-14.0) % Plt Count 333 (150-450) K/mm3 MPV 10.1 (7.5-11.0) fl Sodium 139 (137-145) mmol/L Potassium 4.4 (3.5-5.1) mmol/L Chloride 104 (98-107) mmol/L Carbon Dioxide 30 (22-30) mmol/L Anion Gap 9.3 (5-15) MEQ/L BUN 16 (7-17) mg/dL Creatinine 0.59 (0.52-1.04) mg/dL Estimated GFR > 60.0 ML/MIN Glucose 146 H (74-106) mg/dL POC Glucometer 165 H (74 to 106) mg/dL Hemoglobin A1c (4.5-6.0) % Calcium 8.7 (8.4-10.2) mg/dL 07/11/21 07/11/21 07/11/21 Range/Units 06:30 07:25 11:52 WBC (4.0-10.5) K/mm3 RBC (4.1-5.4) M/mm3 Hgb (12.0-16.0) gm/dl Hct (35-47) % MCV (78-100) fl MCH (26-32) pg MCHC (32-36) g/dl RDW (11.5-14.0) % Plt Count (150-450) K/mm3 MPV (7.5-11.0) fl Sodium (137-145) mmol/L Potassium (3.5-5.1) mmol/L Chloride (98-107) mmol/L Carbon Dioxide (22-30) mmol/L Anion Gap (5-15) MEQ/L BUN (7-17) mg/dL Creatinine (0.52-1.04) mg/dL Estimated GFR ML/MIN Glucose (74-106) mg/dL POC Glucometer 164 H 209 H (74 to 106) mg/dL Hemoglobin A1c 6.61 H (4.5-6.0) % Calcium (8.4-10.2) mg/dL 07/11/21 Range/Units 16:46 WBC (4.0-10.5) K/mm3 RBC (4.1-5.4) M/mm3 Hgb (12.0-16.0) gm/dl Hct (35-47) % MCV (78-100) fl MCH (26-32) pg MCHC (32-36) g/dl RDW (11.5-14.0) % Plt Count (150-450) K/mm3 MPV (7.5-11.0) fl Sodium (137-145) mmol/L Potassium (3.5-5.1) mmol/L Chloride (98-107) mmol/L Carbon Dioxide (22-30) mmol/L Anion Gap (5-15) MEQ/L BUN (7-17) mg/dL Creatinine (0.52-1.04) mg/dL Estimated GFR ML/MIN Glucose (74-106) mg/dL POC Glucometer 209 H (74 to 106) mg/dL Hemoglobin A1c (4.5-6.0) % Calcium (8.4-10.2) mg/dL Microbiology 07/10/21 16:10 Urine Culture - Preliminary Urine, Void <10K NORMAL SKIN TAMIKA PROBABLE SKIN CONTAMINANT Accuchecks Date 07/11/21 Date 07/11/21 Date 07/11/21 - Radiology Impressions Radiology Exams & Impressions: Radiology Procedures Category Date Time Status CHEST 1 VIEW (PORTABLE) Routine Exams 07/10/21 10:15 Completed CHEST WITH CONTRAST [CT] Urgent Exams 07/10/21 18:39 Completed - Other Procedures and Tests Respiratory Therapy 07/11/21 16:11 Respiratory Therapy Assessment DAILY Assessment/Plan (1) Pulmonary fibrosis Current Visit: Yes Status: Acute Assessment & Plan: will treat with iv abx, nebulizers and steroids Code(s): J84.10 - PULMONARY FIBROSIS, UNSPECIFIED (2) Hepatic abscess Current Visit: Yes Status: Acute Assessment & Plan: phone consult with gi at discussed, appropriate iv abx, they will follow along via telephone and available if symptoms or patient begins to deteriorate Code(s): K75.0 - ABSCESS OF LIVER
[2021-07-11] MEDS: HUMALOG SQ PRN (22:05)
[2021-07-12] MEDS: DUONEB 0.5-3 MG/3 ml Neb IH SCH ×4 (00:18→19:12)
[2021-07-12] MEDS: Sodium Chloride 0.9% 1000 ML 1,000 ML IV SCH (03:32)
[2021-07-12] MEDS: Zosyn 3.375 GM Vial 3.375 GM in Sodium Chloride 100ML MINI-BAG PLUS 100 ML IV SCH ×5 (04:41→23:46)
[2021-07-12] MEDS: solu-MEDROL 60 MG, Sterile H2O 10 ml 2 ML IV SCH ×2 (05:45)
[2021-07-12 05:56] LABS: Hematocrit 34.3 % (35-47); Hemoglobin 10.1 gm/dl (12.0-16.0); Mean Cell Volume 99.4 fl (78-100); Mean Corpuscular Hemoglobin 29.3 pg (26-32); Mean Corpuscular Hgb Concent. 29.4 g/dl (32-36); Mean Platelet Volume 10.4 fl (7.5-11.0); Platelet Count 355 K/mm3 (150-450); Red Blood Count 3.45 M/mm3 (4.1-5.4); Red Cell Distribution Width 13.6 % (11.5-14.0); White Blood Count 6.5 K/mm3 (4.0-10.5)
[2021-07-12 06:08] LABS: ALBUMIN 3.3 g/dL (3.5-5.0); ALKALINE PHOSPHATASE 230 U/L (38-126); ANION GAP 15.1 MEQ/L (5-15); BLOOD UREA NITROGEN 18 mg/dL (7-17); CHLORIDE 108 mmol/L (98-107); Calcium 9.3 mg/dL (8.4-10.2); Carbon Dioxide 24 mmol/L (22-30); Creatinine 1 0.55 mg/dL (0.52-1.04); EST GLOMERULAR FILTRATION RATE > 60.0 ML/MIN; Glucose 295 mg/dL (74-106); Potassium 3.9 mmol/L (3.5-5.1); SGOT/AST 29 U/L (14-36); SODIUM 143 mmol/L (137-145); Total Protein 6.8 g/dL (6.3-8.2)
[2021-07-12 06:14] LABS: SGPT/ALT 45 U/L (0-35)
[2021-07-12] MEDS: NORVASC 5 MG PO SCH (09:30)
[2021-07-12] MEDS: Calcium 500MG W/Vit D Tablet PO SCH (09:30)
[2021-07-12] MEDS: TENORMIN 50 MG PO SCH (09:30)
[2021-07-12] MEDS: Vitamin B-12 500 MCG PO SCH (09:31)
[2021-07-12] MEDS: Vitamin C 500 MG PO SCH (09:31)
[2021-07-12] MEDS: Amaryl 2 MG PO SCH (09:31)
[2021-07-12] MEDS: HUMALOG SQ PRN ×3 (09:34→22:31)
[2021-07-12] MEDS ORDERED: NON-FORMULARY ITEM (Calcium Carbonate/Vitamin D3 [Calcium 600 + Vit D Caplet] 1 TAB) PO SCH (10:00)
[2021-07-12] MEDS ORDERED: NON-FORMULARY ITEM (Cyanocobalamin (Vitamin B-12) [Vitamin B-12] 1,000 MCG) PO SCH (10:00)
[2021-07-12] MEDS ORDERED: NON-FORMULARY ITEM (Glimepiride [Glimepiride] 1 MG) PO SCH (10:00)
[2021-07-12] MEDS ORDERED: NON-FORMULARY ITEM (Amlodipine Besylate [Amlodipine Besylate] 10 MG) PO SCH (10:00)
[2021-07-12] MEDS: DELTASONE 20 MG PO SCH (12:33)
[2021-07-13] MEDS: DUONEB 0.5-3 MG/3 ml Neb IH SCH ×4 (01:05→22:12)
[2021-07-13] MEDS: Zosyn 3.375 GM Vial 3.375 GM in Sodium Chloride 100ML MINI-BAG PLUS 100 ML IV SCH ×3 (05:29→18:11)
[2021-07-13] MEDS: HUMALOG SQ PRN ×3 (08:03→22:00)
[2021-07-13] MEDS: TENORMIN 50 MG PO SCH (08:05)
[2021-07-13] MEDS: Vitamin B-12 500 MCG PO SCH (08:05)
[2021-07-13] MEDS: DELTASONE 20 MG PO SCH (08:05)
[2021-07-13] MEDS: Calcium 500MG W/Vit D Tablet PO SCH (08:06)
[2021-07-13] MEDS: Amaryl 2 MG PO SCH (08:06)
[2021-07-13] MEDS: Vitamin C 500 MG PO SCH (08:06)
[2021-07-13] MEDS: NORVASC 5 MG PO SCH (08:08)
[2021-07-13] MEDS: Sodium Chloride 0.9% 1000 ML 1,000 ML IV SCH (11:39)
[2021-07-13] MEDS: TYLENOL 325 MG PO PRN ×2 (12:28→22:00)
[2021-07-13] MEDS: Advair Hfa 115/21 Common canister IH SCH ×2 (16:30→22:13)
[2021-07-14] MEDS: Sodium Chloride 0.9% 1000 ML 1,000 ML IV SCH ×2 (00:51→23:05)
[2021-07-14] MEDS: Zosyn 3.375 GM Vial 3.375 GM in Sodium Chloride 100ML MINI-BAG PLUS 100 ML IV SCH ×5 (01:08→23:06)
[2021-07-14] MEDS: DUONEB 0.5-3 MG/3 ml Neb IH SCH ×4 (02:33→20:05)
[2021-07-14 06:42] LABS: Hematocrit 33.6 % (35-47); Mean Cell Volume 99.7 fl (78-100); Mean Corpuscular Hemoglobin 29.7 pg (26-32); Mean Corpuscular Hgb Concent. 29.8 g/dl (32-36); Mean Platelet Volume 10.2 fl (7.5-11.0); Platelet Count 359 K/mm3 (150-450); Red Blood Count 3.37 M/mm3 (4.1-5.4); Red Cell Distribution Width 14.1 % (11.5-14.0); White Blood Count 9.3 K/mm3 (4.0-10.5)
[2021-07-14 07:16] LABS: ALBUMIN 2.8 g/dL (3.5-5.0); ALKALINE PHOSPHATASE 144 U/L (38-126); ANION GAP 10.3 MEQ/L (5-15); BLOOD UREA NITROGEN 14 mg/dL (7-17); CHLORIDE 107 mmol/L (98-107); Calcium 8.6 mg/dL (8.4-10.2); Carbon Dioxide 29 mmol/L (22-30); Creatinine 1 0.51 mg/dL (0.52-1.04); EST GLOMERULAR FILTRATION RATE > 60.0 ML/MIN; Glucose 186 mg/dL (74-106); Potassium 3.5 mmol/L (3.5-5.1); SGOT/AST 27 U/L (14-36); SGPT/ALT 36 U/L (0-35); SODIUM 142 mmol/L (137-145); Total Protein 5.9 g/dL (6.3-8.2)
--- NOTE | 2021-07-14 09:59 | XRAY ---
Indication: Hepatic abscess. Multiple contiguous images obtained through the abdomen and pelvis using 80 cc Isovue 370 contrast. Comparison: August 07, 2020. Lung bases again demonstrates diffuse scattered fibrosis/scarring with new incompletely visualized small bilateral effusions. Heart is not enlarged. Noncontrasted stomach and bowel loops nonobstructed. There is again moderate diffuse scattered colonic fecal debris throughout and scattered descending/sigmoid diverticulosis. No free fluid/air. Right lobe of the liver demonstrates a new 7.6 cm fluid collection with fluid leveling presumed infected fluid collection/abscess. There has been interval cholecystectomy with new mild pneumobilia. Stable hysterectomy, tiny right renal cortical cyst, and tiny splenic calcified granulomas. Remaining pancreas, adrenal glands, kidneys, ureters, and bladder are unremarkable. There remains moderate scattered aortoiliac calcifications. Proximal aorta again demonstrates fusiform dilatation measuring 4.4 x 4.0 cm with moderate eccentric soft plaquing grossly unchanged. No pathologic retroperitoneal lymphadenopathy. Osseous structures remain intact again with osteopenia and degenerative changes throughout the spine. Impression: 1. New 7.6 cm right lobe hepatic fluid collection with fluid leveling presumed infected fluid collection/abscess. This measured 7 cm on more recent CT chest exam July 10, 2021. 2. Status post cholecystectomy with pneumobilia. 3. New small bibasilar effusions without cardiomegaly. 4. Scattered arteriosclerotic disease with grossly stable proximal aneurysm. 5. Again incidental diffuse fecal stasis, colonic diverticulosis, right renal cyst, pulmonary fibrosis/scarring, chronic bony findings, and old granulomatous disease.
[2021-07-14] MEDS: NORVASC 5 MG PO SCH (10:49)
[2021-07-14] MEDS: Vitamin B-12 500 MCG PO SCH (10:49)
[2021-07-14] MEDS: DELTASONE 20 MG PO SCH (10:49)
[2021-07-14] MEDS: Vitamin C 500 MG PO SCH (10:49)
[2021-07-14] MEDS: Amaryl 2 MG PO SCH (10:50)
[2021-07-14] MEDS: TENORMIN 50 MG PO SCH (10:50)
[2021-07-14] MEDS: Calcium 500MG W/Vit D Tablet PO SCH (10:50)
[2021-07-14] MEDS: Advair Hfa 115/21 Common canister IH SCH ×2 (20:01→20:05)
[2021-07-14] MEDS: HUMALOG SQ PRN (21:53)
[2021-07-15] MEDS: DUONEB 0.5-3 MG/3 ml Neb IH SCH ×4 (03:21→19:09)
[2021-07-15] MEDS: Zosyn 3.375 GM Vial 3.375 GM in Sodium Chloride 100ML MINI-BAG PLUS 100 ML IV SCH ×4 (05:10→23:05)
[2021-07-15] MEDS: Advair Hfa 115/21 Common canister IH SCH ×2 (07:11→19:10)
[2021-07-15] MEDS ORDERED: CARDIZEM DRIP 100 MG/100 ML D5W 100 ML IV PRN (08:38)
[2021-07-15] MEDS ORDERED: Cardizem IV 50 MG/10 ML IV ONE (08:45)
[2021-07-15] MEDS: TYLENOL 325 MG PO PRN (10:00)
[2021-07-15] MEDS: Amaryl 2 MG PO SCH (10:02)
[2021-07-15] MEDS: DELTASONE 20 MG PO SCH (10:04)
[2021-07-15] MEDS: TENORMIN 50 MG PO SCH (10:05)
[2021-07-15] MEDS: Vitamin C 500 MG PO SCH (10:05)
[2021-07-15] MEDS: Vitamin B-12 500 MCG PO SCH (10:06)
[2021-07-15] MEDS: Sodium Chloride 0.9% 1000 ML 1,000 ML IV SCH (10:06)
[2021-07-15] MEDS: Calcium 500MG W/Vit D Tablet PO SCH (10:07)
[2021-07-15] MEDS: NORVASC 5 MG PO SCH (10:08)
[2021-07-15] MEDS: Cardizem CD 180 MG PO SCH (12:54)
[2021-07-15] MEDS: HUMALOG SQ PRN ×2 (17:42→21:23)
[2021-07-16] MEDS: DUONEB 0.5-3 MG/3 ml Neb IH SCH ×4 (01:00→20:49)
[2021-07-16] MEDS: Zosyn 3.375 GM Vial 3.375 GM in Sodium Chloride 100ML MINI-BAG PLUS 100 ML IV SCH ×4 (05:12→23:12)
[2021-07-16] MEDS: Sodium Chloride 0.9% 1000 ML 1,000 ML IV SCH ×2 (05:13→23:11)
[2021-07-16 06:15] LABS: Hematocrit 35.6 % (35-47); Hemoglobin 10.5 gm/dl (12.0-16.0); Mean Cell Volume 98.3 fl (78-100); Mean Corpuscular Hgb Concent. 29.5 g/dl (32-36); Platelet Count 367 K/mm3 (150-450); Red Blood Count 3.62 M/mm3 (4.1-5.4); Red Cell Distribution Width 14.1 % (11.5-14.0); White Blood Count 7.9 K/mm3 (4.0-10.5)
[2021-07-16] MEDS: Advair Hfa 115/21 Common canister IH SCH ×2 (06:24→20:49)
[2021-07-16 06:25] LABS: ALKALINE PHOSPHATASE 131 U/L (38-126); ANION GAP 8.3 MEQ/L (5-15); BLOOD UREA NITROGEN 12 mg/dL (7-17); CHLORIDE 101 mmol/L (98-107); Calcium 8.7 mg/dL (8.4-10.2); Carbon Dioxide 35 mmol/L (22-30); Creatinine 1 0.54 mg/dL (0.52-1.04); EST GLOMERULAR FILTRATION RATE > 60.0 ML/MIN; Glucose 164 mg/dL (74-106); Potassium 3.9 mmol/L (3.5-5.1); SGOT/AST 23 U/L (14-36); SGPT/ALT 34 U/L (0-35); SODIUM 140 mmol/L (137-145); Total Protein 5.9 g/dL (6.3-8.2)
[2021-07-16] MEDS: Calcium 500MG W/Vit D Tablet PO SCH (09:52)
[2021-07-16] MEDS: Amaryl 2 MG PO SCH (09:52)
[2021-07-16] MEDS: NORVASC 5 MG PO SCH (09:53)
[2021-07-16] MEDS: Vitamin B-12 500 MCG PO SCH (09:53)
[2021-07-16] MEDS: DELTASONE 20 MG PO SCH (09:53)
[2021-07-16] MEDS: TENORMIN 50 MG PO SCH (09:54)
[2021-07-16] MEDS: Cardizem CD 180 MG PO SCH (09:54)
[2021-07-16] MEDS: Vitamin C 500 MG PO SCH (09:54)
[2021-07-16] MEDS ORDERED: CARDIZEM DRIP 100 MG/100 ML D5W 100 ML IV PRN (12:06)
[2021-07-16] MEDS ORDERED: Cardizem 30 MG PO ONE ×2 (12:06→18:00)
--- NOTE | 2021-07-16 15:03 | ECHO ---
DATE OF PROCEDURE: 07/15/2021 PROCEDURE: Complete two-dimensional echocardiogram with color Doppler and Spectral analysis. INDICATION: Paroxysmal atrial fibrillation. DESCRIPTION OF FINDINGS: The left ventricle is normal size with mild concentric left ventricular hypertrophy. Normal left ventricular systolic function with ejection fraction of 60 to 65%. The right ventricle is normal size with normal systolic function. The left atrium is borderline dilated. The right atrium is normal size. The aortic valve is trileaflet. It is opens well. There is no aortic stenosis and no aortic regurgitation. The mitral valve is morphologically normal. There is trace mitral regurgitation. The tricuspid valve leaflets are thin and pliable. There is no tricuspid regurgitation. Unable to estimate right ventricular systolic pressure. The pulmonic valve is not well visualized. The aortic root is normal caliber. Inferior vena cava is normal caliber with greater than 50% respiratory variation. There is no pericardial effusion. IMPRESSION: 1) NORMAL LEFT VENTRICULAR SIZE WITH MILD CONCENTRIC LEFT VENTRICULAR HYPERTROPHY. 2) NORMAL LEFT VENTRICULAR SYSTOLIC FUNCTION WITH EJECTION FRACTION OF 60 TO 65%. 3) NORMAL RIGHT VENTRICULAR SYSTOLIC SIZE AND SYSTOLIC FUNCTION. 4) TRACE MITRAL REGURGITATION. 5) UNABLE TO ESTIMATE RIGHT VENTRICULAR SYSTOLIC PRESSURE DUE TO INADEQUATE TRICUSPID REGURGITANT SIGNAL. 6) THERE IS NO SUGGESTION OF SIGNIFICANT PULMONARY HYPERTENSION. 7) NO PERICARDIAL EFFUSION.
--- NOTE | 2021-07-16 15:40 | CONS ---
TELE-CARDIOLOGY CONSULT DATE: 07/16/2021 REASON FOR CONSULT: New onset atrial fibrillation with rapid ventricular response. HISTORY: Rabia Dela Cruz is an 85 year-old woman who was hospitalized at [facility] on 07/11/2021 for shortness of breath and not feeling well. She previously had an ERCP where over 50 bile duct stones removed. She had not felt well ever since her ERCP and she was in Dr. Whalen's office where she looked very ill and was admitted for further evaluation. She underwent a CT of her abdomen and pelvis which demonstrated a new fluid collection in her liver concerning for hepatic abscess, this has not been treated at this time. She is currently on antibiotic. Yesterday, she developed new onset atrial fibrillation with rapid ventricular response with heart rate up to the 140's to 150's. She was started on diltiazem drip and converted to sinus rhythm and this morning was transitioned to oral therapy. She subsequently developed a recurrent episode of atrial fibrillation with heart rate in the 120's for which she did not feel any symptom earlier today and she received another oral dose of Cardizem as well as resumed on the diltiazem drip and she rapidly converted back to sinus rhythm with PAC's. Currently she is in sinus rhythm. She has no symptoms. She does feel somewhat weak but denies any fevers or chills. Denies any chest pain, shortness of breath, orthopnea, paroxysmal nocturnal dyspnea, dizziness or syncope. Dr. Whalen has been in contact with GI service at [facility] and plan is to transfer her in the next one to two days for definitive therapy of her hepatic abscess with likely drainage. Otherwise, she did previously see a safety companion once at [facility] for shortness of breath and had a reportedly normal EKG. She does have some pulmonary fibrosis but is not on any oxygen at home. Currently, she is on 2 liters in the hospital. REVIEW OF SYSTEMS: Fourteen system review performed. Pertinent positives noted in the history of present illness otherwise negative. PAST MEDICAL/SURGICAL HISTORY: Gallstones status post ERCP. Pulmonary fibrosis. Diabetes type II. Remote history of smoking. History of hysterectomy. SOCIAL HISTORY: Remote smoker. Lives at home with her . She denies any alcohol or illicit drug use. FAMILY HISTORY: No premature coronary artery disease. MEDICATIONS: Current medications reviewed. Please see the MAR for full details. PHYSICAL EXAMINATION: Currently heart rate is in the 70's, sinus rhythm. Blood pressure is 110/70. She is on 2 liters nasal cannula saturating 98%. This exam is based on observation over video conference. GENERAL: No acute distress. Conversant, well developed, well nourished, hard of hearing. HEENT: Eyes - Anicteric. Sclera normal. ENT: Hard of hearing. No nasal discharge. PSYCH: Alert, oriented x4, appropriate insight and judgement, normal mood and affect. NEUROLOGICAL: Moving all four extremities spontaneously. Normal speech. LAB DATA AND TESTS: Laboratory data reviewed. Cardiac enzymes are negative x3. Creatinine 0.65. AST normal at 31. ALT is slightly elevated at 43. Alkaline phosphatase is 176. UA negative. COVID-19 screen is negative. White blood cell count 8.9, hemoglobin 10.8, PLT count 342,000. EKG demonstrated atrial fibrillation with rapid ventricular response. Repeat EKG demonstrated sinus rhythm. No ischemic changes. Echo personally reviewed demonstrates left ventricular ejection fraction of 60-65% with mild concentric left ventricular hypertrophy. There is no significant valvular abnormalities. No pericardial effusion. IMPRESSION: 1) New onset atrial fibrillation with rapid ventricular response. She converted back to sinus rhythm with diltiazem. 2) Hepatic abscess with recent history of ERCP and removal of over 50 bile duct stones. 3) History of pulmonary fibrosis. 4) Diabetes type II. RECOMMENDATIONS: At this time will attempt to wean her back off of the diltiazem drip. She just received 60 mg dose of short acting diltiazem at around noon, will give an additional dose at 1800 hours today and wean her off the drip and increase her 24 hour formulation of Cardizem to 300 mg tomorrow morning. Her KENNETH VASc Score is elevated at 4 based on age, gender and history of diabetes. She would be a good candidate for anticoagulation. However pending likely hepatic abscess drainage in the next one to two days, it is okay to hold off on anticoagulation for now. However, I would recommend initiation of oral anticoagulation once deemed appropriate after hepatic abscess drainage with Eliquis 5 mg b.i.d. For now, would continue monitoring. I would not be surprised if she does have some recurrent episodes of atrial fibrillation as she does have ongoing infection with hepatic abscess. I would suspect that the atrial fibrillation would be much easier to control once her infectious issues are definitely dealt with.
[2021-07-16] MEDS: HUMALOG SQ PRN ×2 (17:19→21:24)
[2021-07-17] MEDS: DUONEB 0.5-3 MG/3 ml Neb IH SCH ×4 (01:57→18:34)
[2021-07-17] MEDS: Zosyn 3.375 GM Vial 3.375 GM in Sodium Chloride 100ML MINI-BAG PLUS 100 ML IV SCH (05:13)
[2021-07-17] MEDS: Advair Hfa 115/21 Common canister IH SCH ×2 (07:03→18:34)
[2021-07-17] MEDS: Vitamin C 500 MG PO SCH (09:09)
[2021-07-17] MEDS: Calcium 500MG W/Vit D Tablet PO SCH (09:09)
[2021-07-17] MEDS: NORVASC 5 MG PO SCH (09:09)
[2021-07-17] MEDS: Vitamin B-12 500 MCG PO SCH (09:09)
[2021-07-17] MEDS: Amaryl 2 MG PO SCH (09:10)
[2021-07-17] MEDS: TENORMIN 50 MG PO SCH (09:10)
[2021-07-17] MEDS ORDERED: Cardizem CD 300 MG PO SCH (10:00)
[2021-07-17] MEDS: ENOXAPARIN SODIUM SQ SCH ×2 (11:52→21:06)
[2021-07-17] MEDS: HUMALOG SQ PRN (12:53)
[2021-07-17] MEDS: Sodium Chloride 0.9% 1000 ML 1,000 ML IV SCH ×2 (19:33→21:06)
[2021-07-18 00:18] VITALS: BP 124/72; PULSE 65; O2SAT 92
--- NOTE | 2021-07-29 17:41 | PCM.DS ---
Discharge Summary Date of Admission: 07/11/21 20:18 Date of Discharge: 07/18/2021 Admitting Physician: TIFFANY SAENZ Consults: Consults on Case 07/15/21 12:30 Consult Cardiology ROUTINE Primary Care Provider: TIFFANY SAENZ Allergies Allergies No Known Drug Allergies Allergy (Verified 08/27/20 06:39) Hospital Summary - Hospital Course Hospital Course: Pt. admitted for increasing sob since procedure to remove over 50 gallstones by ERCP. Pt. notes persistent Right shoulder pain also since that time, pt. admitted for iv abx and steroids, upon further evaluation an elevated d-dimer prompted CT of chest which noted to have a fluid collection in the liver which later coalesced into an abscess, pt. was placed immediately on appropriate antibiotics and [facility] was consulted, they agreed with treatment plan and patient remained at [facility] for continued iv abx, her breathing stabilized rapidly and shoulder pain also improved but the abscess did not improve and pt. was transferred to for ERCP and definitive drainage of the abscess with continued iv abx. - Vitals & Intake/Output Vital Signs: Vital Signs Temperature 98.2 F 07/18/21 00:00 Pulse Rate 65 07/18/21 00:00 Respiratory Rate 20 07/18/21 00:00 Blood Pressure 124/72 07/18/21 00:00 O2 Sat by Pulse Oximetry 92 L 07/18/21 00:00 - Lab Result Diagrams: 07/16/21 04:30 07/16/21 04:30 Micro Results-Entire Visit: Microbiology 07/10/21 16:10 Urine Culture - Final Urine, Void MIXED TAMIKA; 3 OR MORE TYPES. NO PREDOMINANT ORGANISM. NO FURTHER WORKUP. PLEASE RESUBMIT IF CLINICALLY INDICATED. - Procedures and Test Procedures and Tests throughout Hospitalization: Therapy Orders & Screens 07/10/21 16:10 EKG ROUTINE Comment: Diagnosis: CHF,PNEUMONIA,SOB Oxygen Nasal Cannula 2 lpm Comment: Diagnosis: CHF,PNEUMONIA,SOB 07/11/21 10:46 Respiratory Nebulizer Q6H Comment: AYLA Diagnosis: CHF, PNEUMONIA, SOB 07/11/21 16:11 Respiratory Therapy Assessment DAILY Comment: Diagnosis: CHF, PNEUMONIA, SOB 07/15/21 08:21 EKG STAT Comment: Diagnosis: PULMONARY FIBROSIS, HEPATIC ABCESS 07/15/21 12:00 EKG ROUTINE Comment: Diagnosis: PULMONARY FIBROSIS, HEPATIC ABCESS 07/16/21 12:00 EKG OM.NOW Comment: Diagnosis: PULMONARY FIBROSIS, HEPATIC ABCESS Discharge Exam General Appearance: no apparent distress, alert Neurologic Exam: alert, oriented x 3, cooperative, normal mood/affect, nml cerebellar function, sensation nml, No motor deficits Eye Exam: PERRL, EOMI, eyes nml inspection Ears, Nose, Throat Exam: normal ENT inspection, pharynx normal, moist mucous membranes Neck Exam: normal inspection, non-tender, supple, full range of motion Respiratory Exam: normal breath sounds, lungs clear, No respiratory distress Cardiovascular Exam: regular rate/rhythm, normal heart sounds Gastrointestinal/Abdomen Exam: soft, No tenderness, No mass Pelvic Exam: deferred Rectal Exam: deferred Back Exam: normal inspection, normal range of motion, No CVA tenderness, No vertebral tenderness Extremity Exam: normal inspection, normal range of motion Skin Exam: normal color, warm, dry Final Diagnosis/Problem List - Final Discharge Diagnosis/Problem (1) Pulmonary fibrosis Status: Acute Code(s): J84.10 - PULMONARY FIBROSIS, UNSPECIFIED (2) Hepatic abscess Status: Acute Code(s): K75.0 - ABSCESS OF LIVER - Discharge Discharge Date: 07/18/21 Disposition: DC TO OTHER HOSP Condition: Serious Prescriptions: No Action Amlodipine Besylate 10 mg PO DAILY atenoloL [Atenolol] 50 mg PO DAILY Glimepiride 1 mg PO DAILY Calcium Carbonate/Vitamin D3 [Calcium 600 + Vit D Caplet] 1 tab PO DAILY Ascorbic Acid 500 mg [Vitamin C 500 MG] 500 mg PO DAILY Cyanocobalamin (Vitamin B-12) [Vitamin B-12] 1,000 mcg PO DAILY Follow up with: TIFFANY SAENZ MD [Primary Care Provider] - Forms: Ambulance Transport Record, Transfer Record Inter-Agency
== END 2021-07-18 00:15 | DRG 196 ==
LOC: MED SURG 15:00 → UNDOADMOB 15:00 → MED SURG 17:18 → OBSVTOIN 07-11 20:18 → INTOOBSV 07-11 20:18 → ICU 07-15 10:25
PROVIDERS: ADMIT Family Medicine; ATTEND Family Medicine
DX: J84.10 Pulmonary fibrosis, unspecified (principal); K75.0 Abscess of liver; I48.91 Unspecified atrial fibrillation; E11.9 Type 2 diabetes mellitus without complications; M25.511 Pain in right shoulder; R79.1 Abnormal coagulation profile; I10 Essential (primary) hypertension; Z20.822 Contact with and (suspected) exposure to COVID-19
CPT/HCPCS: 36415; 36600; 71045; 71260; 74177; 80048; 80053; 81001; 82375; 82803; 82947; 83036; 83735; 83880; 84484; 85027; 85379; 87086; 93005; 93306; 94640; 94760; G0378; Q3014; U0003; J0456; J0696; J1650; J1817; J1940; J2930; A9270-GY